=== PATIENT | male | born 1945 | race Caucasian/White ===

== ENCOUNTER 2017-02-05 16:54 | Emergency (ER) | payer MEDICARE, OTHER ==
[~2017-02-05] VITALS: Ht 188 cm; Wt 124.5 kg
[~2017-02-05 16:54] MED LIST: ALLO300T2 PO; ASPI81 PO; FISH1000 PO; GLUCTAB OR; HYDR-2768 PO; INDO50CA PO; KLOR8TAB PO; PARO40TA PO; SIMV80TA OR
[2017-02-05 17:02] VITALS: BP 138/77; PULSE 68; RESP 16; TEMP 97.5; O2SAT 95
[2017-02-05] MEDS ORDERED: POTA10CA PO (17:17)
[2017-02-05] MEDS ORDERED: ZOCO40TA PO (17:17)
[2017-02-05] MEDS ORDERED: METF500T PO (17:17)
[2017-02-05] MEDS ORDERED: ALLO300T2 PO (17:17)
[2017-02-05] MEDS ORDERED: PARO40TA2 PO (17:17)
[2017-02-05 17:19] LABS: BLOOD, URINE LARGE (NEG); GLUCOSE,URINE NEG (NEG); KETONE, URINE NEG (NEG); NITRITE,URINE NEG (NEG)
[2017-02-05 17:20] LABS: METHOD OF COLLECTION CLEAN CATCH; URINE COLOR BROWN (YELLW/STRAW)
--- NOTE | 2017-02-05 17:21 | PD ---
HPI Chief Complaint: Flank/Kidney Pain Time Seen by Provider: 17:12 Travel History International Travel<30 days: No Contact w/Intl Traveler<30days: No Traveled to known affect area: No History of Present Illness HPI This 72-year-old male is complaining of left flank pain and bloody urine. He's been having the pain off and on for about 4 days. Been fairly constant since last night. He has noted some dark urine. He took some milk of magnesia without any relief. The pain is having is in the left flank area. He has a history of diabetes and hypertension. He has never had a kidney stone. He says the pain is quite severe right. It has been constant since last night PFSH Past Medical History High Cholesterol: Yes Diabetes: Yes Patient Takes Glucophage: Yes Gout: Yes Hypertension: Yes Social History Alcohol Use: No Tobacco Use: No Substance Use: No Allergies-Medications (Allergen,Severity, Reaction): Coded Allergies: No Known Allergies (Unverified , 02/05/17) Reported Meds & Prescriptions Reported Meds & Active Scripts Active Reported Zocor (Simvastatin) 40 Mg Tab 40 Mg PO DAILY Potassium Chloride ER (Potassium Chloride) 10 Meq Cap 10 Meq PO BID Paroxetine (Paroxetine HCl) 40 Mg Tab 40 Mg PO DAILY Metformin (Metformin HCl) 500 Mg Tab 500 Mg PO DAILY With a meal Allopurinol 300 Mg Tab 300 Mg PO DAILY Review of Systems General / Constitutional: No: Fever, Chills Eyes: No: Diploplia, Blurred Vision HENT: No: Headaches, Vertigo Cardiovascular: No: Chest Pain or Discomfort, Palpitations Respiratory: No: Cough, Shortness of Breath Gastrointestinal: No: Nausea, Vomiting Genitourinary: Positive: Hematuria, Flank Pain, No: Urgency Musculoskeletal: No: Myalgias, Arthralgias Skin: No Rash Neurologic: No: Weakness Hematologic/Lymphatic: No: Easy Bruising Physical Exam Narrative GENERAL: Well-developed male SKIN: Focused skin assessment warm/dry. HEAD: Atraumatic. Normocephalic. EYES: Pupils equal and round. No scleral icterus. No injection or drainage. ENT: No nasal bleeding or discharge. Mucous membranes pink and moist. NECK: Trachea midline. No JVD. CARDIOVASCULAR: Regular rate and rhythm. No murmur appreciated. RESPIRATORY: No accessory muscle use. Clear to auscultation. Breath sounds equal bilaterally. GASTROINTESTINAL: Abdomen soft, non-tender, nondistended. Hepatic and splenic margins not palpable. There is some left CVA tenderness MUSCULOSKELETAL: No obvious deformities. No clubbing. No cyanosis. No edema. NEUROLOGICAL: Awake and alert. No obvious cranial nerve deficits. Motor grossly within normal limits. Normal speech. PSYCHIATRIC: Appropriate mood and affect; insight and judgment normal. Data Data Last Documented VS Vital Signs Date Time Temp Pulse Resp B/P Pulse Ox O2 Delivery O2 Flow Rate FiO2 02/05/17 18:01 53 20 104/54 94 02/05/17 17:02 97.5 Orders Urinalysis - C+S If Indicated (02/05/17 17:05) Basic Metabolic Panel (Bmp) (02/05/17 17:16) Complete Blood Count With Diff (02/05/17 17:16) Ct Abd/Pel W/O Iv Contrast (02/05/17 17:16) Ketorolac Inj (Toradol Inj) (02/05/17 17:30) Ondansetron Inj (Zofran Inj) (02/05/17 17:30) Sodium Chloride 0.9% Flush (Ns Flush) (02/05/17 17:30) Hydromorphone Pf Inj (Dilaudid Pf Inj) (02/05/17 17:30) Urine Culture (02/05/17 17:00) Labs Laboratory Tests Test 02/05/17 02/05/17 17:00 17:25 Urine Collection Type CLEAN CATCH Urine Color BROWN Urine Turbidity CLOUDY Urine pH 5.0 Urine Specific [place] 1.030 Urine Protein 100 mg/dL Urine Glucose (UA) NEG mg/dL Urine Ketones NEG mg/dL Urine Occult Blood LARGE Urine Nitrite NEG Urine Bilirubin NEG Urine Leukocyte Esterase TRACE Urine RBC 100-200 /hpf Urine WBC 6-8 /hpf Urine Bacteria MOD /hpf Microscopic Urinalysis Comment CULTURE INDICATED White Blood Count 10.1 TH/MM3 Red Blood Count 4.79 MIL/MM3 Hemoglobin 14.5 GM/DL Hematocrit 43.5 % Mean Corpuscular Volume 90.8 FL Mean Corpuscular Hemoglobin 30.2 PG Mean Corpuscular Hemoglobin 33.3 % Concent Red Cell Distribution Width 12.4 % Platelet Count 213 TH/MM3 Mean Platelet Volume 8.7 FL Neutrophils (%) (Auto) 64.9 % Lymphocytes (%) (Auto) 24.9 % Monocytes (%) (Auto) 9.0 % Eosinophils (%) (Auto) 0.8 % Basophils (%) (Auto) 0.4 % Neutrophils # (Auto) 6.6 TH/MM3 Lymphocytes # (Auto) 2.5 TH/MM3 Monocytes # (Auto) 0.9 TH/MM3 Eosinophils # (Auto) 0.1 TH/MM3 Basophils # (Auto) 0.0 TH/MM3 CBC Comment DIFF FINAL Differential Comment Sodium Level 144 MEQ/L Potassium Level 3.6 MEQ/L Chloride Level 109 MEQ/L Carbon Dioxide Level 25.7 MEQ/L Anion Gap 9 MEQ/L Blood Urea Nitrogen 22 MG/DL Creatinine 1.20 MG/DL Estimat Glomerular Filtration 59 ML/MIN Rate Random Glucose 152 MG/DL Calcium Level 9.1 MG/DL MDM Medical Decision Making Medical Screen Exam Complete: Yes Emergency Medical Condition: Yes Medical Record Reviewed: Yes Differential Diagnosis Differential includes UTI, renal colic, ureteral stone Narrative Course Urine shows 1-[address] scan shows a 7 mm distal ureteral stone. Patient's pain was well-controlled with 0.5 mg of Dilaudid and Toradol. He'll be released with prescription for Percocet. I also recommended that he take ibuprofen around the clock. Strain all urines. Follow up with urology if he does not pass the stone in the next few days Diagnosis Primary Impression: Renal colic on left side Additional Instructions: Take ibuprofen 400 mg every 6 hours for the next 2 days. Drink plenty of fluids. Strain all urine. Follow-up with urologist if stone has not passed in 3-4 days Scripts Oxycodone-Acetaminophen (Percocet)5-325 mg Tab1-2 Tab PO Q4H PRN (PAIN) #30 TAB Ref 0 Prov:Vargas Gil MD 02/05/17 Disposition: 01 DISCHARGE HOME Condition: Stable Vargas Gil MD Feb 05, 2017 17:21
[2017-02-05 17:24] LABS: BACTERIA, URINE MOD /hpf; COMMENT (UR) CULTURE INDICATED; CULTURE IF INDICATED CULTURE INDICATED; RBC, URINE 100-200 /hpf (0-3)
[2017-02-05] MEDS ORDERED: ONDANSETRON HCL 4 MG/2 ML VIAL IVP ONE (17:30)
[2017-02-05] MEDS ORDERED: HYDROmorphone HCL PF 1 MG/ML VIAL IVS ONE (17:30)
[2017-02-05] MEDS ORDERED: SODIUM CHLORIDE 0.9% FLUSH 10 ML FLUSH IVF PRN (17:30)
[2017-02-05] MEDS ORDERED: KETOROLAC TROMETHAMINE 30 MG/ML (IVP) VIAL IVP ONE (17:30)
[2017-02-05 17:32] LABS: AUTOMATED NEUTROPHIL # 6.6 TH/MM3 (1.8-7.7); BASOPHIL % 0.4 % (0.0-2.0); EOSINOPHIL # 0.1 TH/MM3 (0-0.4); EOSINOPHIL % 0.8 % (0.0-4.0); HEMATOCRIT 43.5 % (39.0-51.0); HEMO FLAGS DIFF FINAL; LYMPH % 24.9 % (9.0-44.0); LYMPHOCYTE # 2.5 TH/MM3 (1.0-4.8); MEAN CELL VOLUME 90.8 FL (80.0-100.0); MEAN CORPUSCULAR HEMOGLOBIN 30.2 PG (27.0-34.0); MEAN CORPUSCULAR HGB CONC 33.3 % (32.0-36.0); NEUT % 64.9 % (16.0-70.0); PLATELET COUNT 213 TH/MM3 (150-450); RED BLOOD COUNT 4.79 MIL/MM3 (4.50-5.90); RED CELL DISTRIBUTION WIDTH 12.4 % (11.6-17.2); WHITE BLOOD COUNT 10.1 TH/MM3 (4.0-11.0)
[2017-02-05 17:42] LABS: POTASSIUM 3.6 MEQ/L (3.5-5.1)
[2017-02-05 17:45] LABS: BICARBONATE 25.7 MEQ/L (21.0-32.0)
[2017-02-05 18:01] VITALS: BP 104/54; PULSE 53; RESP 20; O2SAT 94
--- NOTE | 2017-02-05 18:14 | RADHPO ---
EXAM DATE/TIME: 02/05/2017 17:39 [facility] COMPARISON: No previous studies available for comparison. INDICATIONS : Left flank pain with hematuria. ORAL CONTRAST: No oral contrast ingested. RADIATION DOSE: 24.04 CTDIvol (mGy) MEDICAL HISTORY : Hypertension. SURGICAL HISTORY : None. ENCOUNTER: Initial ACUITY: 2 days PAIN SCALE: 4/10 LOCATION: Left flank TECHNIQUE: Volumetric scanning of the abdomen and pelvis was performed. Using automated exposure control and ad justment of the mA and/or kV according to patient size, radiation dose was kept as low as reasonably achievable to obtain optimal diagnostic quality images. FINDINGS: LOWER LUNGS: The visualized lower lungs are clear. LIVER: Homogeneous density without lesion. There is no dilation of the biliary tree. No calcified gallston es. SPLEEN: Normal size without lesion. PANCREAS: Within normal limits. KIDNEYS: Distal obstructing calculus ges 7 mm in the left ureter causing mild hydronephrosis and hydroureter. Punctate obstructing lower pole left renal calculus measures 2 mm. Left-sided renal cysts.. ADRENAL GLANDS: Within normal limits. VASCULAR: There is no aortic aneurysm. BOWEL/MESENTERY: Diverticulosis of the colon. There is no free intraperitoneal air or fluid. ABDOMINAL WALL: Within normal limits. RETROPERITONEUM: There is no lymphadenopathy. BLADDER: No wall thickening or mass. REPRODUCTIVE: Within normal limits. INGUINAL: There is no lymphadenopathy or hernia. MUSCULOSKELETAL: Within normal limits for patient age. CONCLUSION: 1. Lower obstructing ureteral calculus measures 7 mm. This could be related to two adjacent ureteral calculi. 2. Diverticulosis. 3. Punctate nonobstructing left renal calculus. 4. Left renal cyst. Milad Barrera MD on February 05, 2017 at 18:07 Board Certified Radiologist. This report was verified electronically.
[2017-02-05] MEDS ORDERED: PERC5TAB12 PO (18:34)
== END 2017-02-05 18:49 | disposition home or self-care (01) ==
LOC: PHED 16:54
DX: N23 Unspecified renal colic (principal); N20.1 Calculus of ureter; R31.9 Hematuria, unspecified; E11.9 Type 2 diabetes mellitus without complications; I10 Essential (primary) hypertension; E78.00 Pure hypercholesterolemia, unspecified; Z79.84 Long term (current) use of oral hypoglycemic drugs; Z87.39 Personal history of other diseases of the musculoskeletal system and connective tissue
CPT/HCPCS: 74176; 80048; 81001; 85025; 87086; 96374; 96375; 99285; J1170; J1885; J2405